=== PATIENT | male | born 1960 | race Caucasian/White ===

== ENCOUNTER → 2020-09-25 | Outpatient (CLI) | payer BC ==
[~2020-09-25] MED LIST: ACET-1600 PO
[2020-09-25 08:32] LABS: BASOPHILS % (AUTO) 1 % (0-1); EOSINOPHILS % (AUTO) 1 % (1-7); LYMPHOCYTES % (AUTO) 18 % (22-44); MEAN CORPUSCULAR HEMOGLOBIN 31.7 pg (27.5-34.5); MEAN CORPUSCULAR HGB CONC 33.9 g/dL (33.2-36.2); MEAN PLATELET VOLUME 8.4 fL (7.4-10.4); MONOCYTES % (AUTO) 11 % (2-9); NEUTROPHILS % (AUTO) 69 % (42-75); PLATELET COUNT 244 x10^3/uL (130-400); RED BLOOD COUNT 4.22 x10^6/uL (4.38-5.82); RED CELL DISTRIBUTION WIDTH 14.1 % (9.4-14.8)
[2020-09-25 08:40] LABS: ALANINE AMINOTRANSFERASE 40 U/L (12-78); ALBUMIN 3.8 g/dL (3.4-5.0); ANION GAP 8 mmol/L (5-15); CALCIUM 9.7 mg/dL (8.5-10.1); CHLORIDE 101 mmol/L (98-107); CREATININE 0.97 mg/dL (0.7-1.3)
[2020-09-25 08:41] LABS: INTERNATIONAL NORMALIZED RATIO 1.02 (0.93-1.1); PROTHROMBIN TIME 10.9 Seconds (9.6-11.5)
[2020-09-25 08:43] LABS: ALKALINE PHOSPHATASE 106 U/L (45-117); BILIRUBIN,TOTAL 0.7 mg/dL (0.2-1.0)
[2020-09-25 08:45] LABS: MICROSCOPIC NOT IND
== END | disposition home or self-care (01) ==
LOC: STAR 07:17
PROVIDERS: ATTEND Urology
DX: Z01.818 Encounter for other preprocedural examination (principal); N28.89 Other specified disorders of kidney and ureter
CPT/HCPCS: 36415; 80053; 81003; 85025; 85610; 87086; 93005

== ENCOUNTER 2020-10-08 10:00 | Inpatient (IN) | payer BC ==
[~2020-10-08] VITALS: Ht 177.8 cm; Wt 116.0 kg
[~2020-10-08 10:00] MED LIST changes: +BUPIVACAINE/PF-EPI 0.25% 1:200K ONE; +FLUORESCEIN SODIUM 500 MG/5 ML ONE; +THROMBIN 5,000 UNIT VIAL TP ONE
[2020-10-08] MEDS ORDERED: MIDAZOLAM 1 MG/ML, 2ML ONE (10:26)
[2020-10-08] MEDS ORDERED: FENTANYL PF 250 MCG/5ML ONE (10:27)
[2020-10-08 10:44] VITALS: BP 149/100
[2020-10-08] MEDS ORDERED: CHLORHEXIDINE 15 ML UDC ONE (10:50)
[2020-10-08] MEDS ORDERED: CHLORHEXIDINE 15 ML UDC PO ONE (11:00)
[2020-10-08] MEDS ORDERED: LACTATED RINGERS 1,000 ML IV SCH (11:00)
[2020-10-08] MEDS ORDERED: SUCCINYLCHOLINE 20 MG/ML, 10ML ONE (13:48)
[2020-10-08] MEDS ORDERED: CEFAZOLIN 1,000 MG ONE (13:48)
[2020-10-08] MEDS ORDERED: ROCURONIUM 10 MG/ML,10ML ONE (13:48)
[2020-10-08] MEDS ORDERED: PROPOFOL 10 MG/ML, 20ML ONE (13:48)
[2020-10-08] MEDS ORDERED: ONDANSETRON 2MG/ML, 2ML ONE (13:48)
[2020-10-08] MEDS ORDERED: DEXAMETHASONE 4 MG/ML, 1ML ONE (13:48)
[2020-10-08] MEDS ORDERED: ALBUTEROL SULFATE 2.5 MG/3 ML NPPB PRN (15:30)
[2020-10-08] MEDS ORDERED: DIAZEPAM 5 MG/ML, 2ML IV PRN ×2 (15:30)
[2020-10-08] MEDS ORDERED: hydrALAzine 20 MG/ML, 1ML IV PRN (15:30)
[2020-10-08] MEDS ORDERED: ONDANSETRON 2MG/ML, 2ML IVPush PRN (15:30)
[2020-10-08] MEDS ORDERED: KETOROLAC 30 MG/1 ML IV PRN (15:30)
[2020-10-08] MEDS ORDERED: OXYcodone 5 MG/5 ML ORAL.SOL UDC PO PRN (15:30)
[2020-10-08] MEDS ORDERED: LABETALOL 5MG/ML, 20ML IV PRN (15:30)
[2020-10-08] MEDS ORDERED: PROMETHAZINE 25 MG/ML, 1ML IV PRN (15:30)
[2020-10-08] MEDS ORDERED: MEPERIDINE/PF 25MG/0.5ML IVPush PRN (15:30)
[2020-10-08] MEDS ORDERED: METOCLOPRAMIDE 5 MG/ML, 2ML IV PRN (15:30)
[2020-10-08] MEDS ORDERED: FENTANYL PF 100 MCG/2ML ONE ×3 (18:56→19:29)
[2020-10-08] MEDS ORDERED: DIAZEPAM 5 MG/ML, 2ML ONE (18:56)
[2020-10-08] MEDS ORDERED: HYDROmorphone 2 MG/ML, 1ML ONE ×2 (18:56→19:29)
[2020-10-08] MEDS ORDERED: OXYcodone 5 MG/5 ML ORAL.SOL UDC ONE (18:57)
[2020-10-08] MEDS: FENTANYL PF 100 MCG/2ML IV PRN ×3 (18:57→19:30)
[2020-10-08] MEDS: HYDROmorphone 1 MG/ML, 1ML INJ IV PRN ×5 (19:10→19:35)
[2020-10-08] MEDS ORDERED: ONDANSETRON 2MG/ML, 2ML IV PRN (21:00)
[2020-10-08] MEDS ORDERED: HYDROcodone/APAP 10/325 MG TABLET PO PRN (21:00)
[2020-10-08 21:32] VITALS: BP 131/84
[2020-10-08] MEDS: D5%-0.45NACL+KCL 20MEQ 1,000 ML IV SCH (23:03)
[2020-10-08] MEDS: CEFAZOLIN PMX 1GM/50ML 50 ML IVPB SCH (23:03)
[2020-10-08] MEDS: morphine SULFATE 10 MG/ML, 1ML IV PRN (23:35)
[2020-10-08 23:53] VITALS: BP 113/65
[2020-10-09] VITALS: BP 113/65
[2020-10-09] MEDS: morphine SULFATE 10 MG/ML, 1ML IV PRN ×5 (02:32→19:49)
[2020-10-09 06:33] LABS: ANION GAP 7 mmol/L (5-15); CALCIUM 8.1 mg/dL (8.5-10.1); CHLORIDE 107 mmol/L (98-107); CREATININE 1.22 mg/dL (0.7-1.3)
[2020-10-09] MEDS: CEFAZOLIN PMX 1GM/50ML 50 ML IVPB SCH (06:36)
[2020-10-09 08:38] VITALS: BP 117/69
[2020-10-09] MEDS: D5%-0.45NACL+KCL 20MEQ 1,000 ML IV SCH ×2 (09:15→17:16)
[2020-10-09 13:01] VITALS: BP 108/72
[2020-10-09 21:41] VITALS: BP 124/78
[2020-10-10] MEDS: HYDROmorphone 2MG TABLET PO PRN ×5 (00:41→18:42)
[2020-10-10] MEDS: D5%-0.45NACL+KCL 20MEQ 1,000 ML IV SCH ×3 (01:44→18:00)
[2020-10-10 02:12] VITALS: BP 108/56
[2020-10-10 07:38] LABS: CHLORIDE 101 mmol/L (98-107)
[2020-10-10 07:46] LABS: ANION GAP 6 mmol/L (5-15); CREATININE 1.18 mg/dL (0.7-1.3)
[2020-10-10 07:50] VITALS: BP 142/83
[2020-10-10] MEDS: DOCUSATE 100 MG CAPSULE PO SCH (09:13)
[2020-10-10] MEDS ORDERED: OXYC10SY PO ×2 (11:59)
[2020-10-10] MEDS ORDERED: DOCU-131 PO (11:59)
[2020-10-10] MEDS: morphine SULFATE 10 MG/ML, 1ML IV PRN (12:00)
[2020-10-10 13:14] VITALS: BP 119/78
[2020-10-10] MEDS ORDERED: OXYC5TAB2 PO (13:49)
[2020-10-10] MEDS ORDERED: SENNA/DOCUSATE TABLET PO PRN (18:00)
[2020-10-10 19:39] VITALS: BP 138/85
[2020-10-11 00:33] VITALS: BP 131/82
[2020-10-11] MEDS: HYDROmorphone 2MG TABLET PO PRN ×3 (00:33→13:31)
[2020-10-11] MEDS: D5%-0.45NACL+KCL 20MEQ 1,000 ML IV SCH ×2 (02:00→13:18)
[2020-10-11 05:34] LABS: CALCIUM 8.5 mg/dL (8.5-10.1); CREATININE 1.11 mg/dL (0.7-1.3)
[2020-10-11 05:57] LABS: ANION GAP 5 mmol/L (5-15); CHLORIDE 101 mmol/L (98-107)
[2020-10-11 07:24] VITALS: BP 126/77
[2020-10-11] MEDS: DOCUSATE 100 MG CAPSULE PO SCH (09:09)
[2020-10-11 13:32] VITALS: BP 128/84
[2020-10-11 14:47] VITALS: BP 116/75
[2020-10-11] MEDS ORDERED: OXYcodone IR 5MG TABLET PO PRN (15:00)
[2020-10-11] MEDS ORDERED: ACETAMINOPHEN 325 MG TABLET PO PRN (15:30)
[2020-10-11 17:26] VITALS: BP 122/83
== END 2020-10-11 18:45 | disposition home or self-care (01) | DRG 661 ==
LOC: OUT 10:00 → EDSTATUS 12:00 → 4NE 20:00 → OUT 20:45 → 4NE 22:31
PROVIDERS: ADMIT Urology; ATTEND Urology
PROC: 8E0W4CZ Robotic Assisted Procedure of Trunk Region, Percutaneous Endoscopic Approach (ICD-10-PCS; 2020-10-08)
PROC: 0TB04ZZ Excision of Right Kidney, Percutaneous Endoscopic Approach (ICD-10-PCS; principal; 2020-10-08 12:00)
DX: N28.89 Other specified disorders of kidney and ureter (principal)
CPT/HCPCS: 36415; 80048; 82570; 85014; 85018; 86850; 86900; 88307; C1729; G0378; J0690; J1100; J1170; J2250; J2405; J2704; J3010; J3360; C1760; J0330; J2270; J3480; J7120